=== PATIENT | male | born 1975 | race Caucasian/White ===

== ENCOUNTER 2017-04-24 12:02 | Emergency (ER) | payer SELFPAY ==
[~2017-04-24] VITALS: Ht 175.3 cm; Wt 100.0 kg
[2017-04-24 12:05] VITALS: BP 128/83; PULSE 87; RESP 14; TEMP 97.6; O2SAT 99
--- NOTE | 2017-04-24 12:38 | PD ---
HPI Chief Complaint: OD/ Ingestion Time Seen by Provider: 12:31 Travel History International Travel<30 days: No Contact w/Intl Traveler<30days: No Traveled to known affect area: No History of Present Illness HPI Patient is a 41-year-old healthy presents emergency department for evaluation of altered mental status. EMS reports there were called to a local hotel and had high suspicion of a heroin overdose. They administered 0.4 mg of Narcan when the patient was found to be sonorous with a GCS of 3, his best GCS prior to arrival was 9 after the Narcan. His saturations were 100% with nasal cannula. On arrival the patient is a GCS of 14 with waxing and waning mental status but was able to wake up and tell us that he had a rash on his belly. Further history is extremely limited. [facility] Past Medical History Medical History: Unable to Obtain Past Surgical History Surgical History: Unable to Obtain Social History Alcohol Use: Yes (UNKNOWN ) Tobacco Use: Yes (UNKNOWN ) Substance Use: Yes (HEROIN ) Allergies-Medications (Allergen,Severity, Reaction): Coded Allergies: No Known Allergies (Unverified , 04/24/17) Review of Systems Except as stated in HPI: all other systems reviewed are Neg Physical Exam Narrative GENERAL: Well-developed well-nourished no obvious distress. SKIN: Focused skin assessment warm/dry. Small scaly rash on the lower abdomen consistent with contact dermatitis. No external signs of trauma seen. HEAD: Atraumatic. Normocephalic. No delgado signs no raccoons eyes. EYES: Pupils equal and round. No scleral icterus. No injection or drainage. ENT: No nasal bleeding or discharge. Mucous membranes pink and moist. NECK: Trachea midline. No JVD. CARDIOVASCULAR: Regular rate and rhythm. No murmur appreciated. RESPIRATORY: No accessory muscle use. Clear to auscultation. Breath sounds equal bilaterally. GASTROINTESTINAL: Abdomen soft, non-tender, nondistended. Hepatic and splenic margins not palpable. MUSCULOSKELETAL: No obvious deformities. No clubbing. No cyanosis. No edema. NEUROLOGICAL: Awake and alert. GCS of 14 (E3,V5,M6), follows commands in all 4 extremities, opens eyes to verbal. No obvious cranial nerve deficits. PSYCHIATRIC: Appropriate mood and affect; insight and judgment normal. Data Data Last Documented VS Vital Signs Date Time Temp Pulse Resp B/P (MAP) Pulse Ox O2 Delivery O2 Flow Rate FiO2 04/24/17 17:55 97.8 78 16 124/81 (95) 99 04/24/17 16:51 Nasal Cannula 2.00 Orders Orders Ed Discharge Order (04/24/17 17:16) MDM Medical Decision Making Medical Screen Exam Complete: Yes Emergency Medical Condition: Yes Differential Diagnosis Heroine overdose, altered mental status, substance abuse. Narrative Course Patient roomed emergency department, was observed for several hours and had full return of his faculties. He did not require any additional Narcan dose given in the emergency department. There is no indication further workup of this patient at this time. He is stable for discharge. Diagnosis Primary Impression: Heroin overdose Additional Impression: Substance abuse Referrals: [facility] Disposition: 01 DISCHARGE HOME Condition: Stable Alistair Garcia MD Apr 24, 2017 12:38
[2017-04-24 14:00] VITALS: BP 108/65; PULSE 89; RESP 16; O2SAT 97
[2017-04-24 15:16] VITALS: BP 116/71; PULSE 86; RESP 17; TEMP 97.8; O2SAT 98
[2017-04-24 16:51] VITALS: BP 112/67; PULSE 77; RESP 18; TEMP 97.8; O2SAT 99
[2017-04-24 17:55] VITALS: BP 124/81; TEMP 97.8
== END 2017-04-24 17:50 | disposition home or self-care (01) ==
LOC: NEPE 12:02
DX: T40.1X1A Poisoning by heroin, accidental (unintentional), initial encounter (principal); R41.82 Altered mental status, unspecified; Y92.9 Unspecified place or not applicable
CPT/HCPCS: 99283